=== PATIENT | male | born 1940 | race Caucasian/White ===

== ENCOUNTER → 2017-02-04 | Outpatient (CLI) | payer MEDICARE, OTHER ==
[~2017-02-04] MED LIST: CEFD300C2 PO; CHEMO IV; DIGO125T PO; DIGO250T PO; DOXY100T PO; HYDR-3138 PO; HYDR12.58 PO; INSU100V5 SQ-INSULIN; METO50TA82 PO; METOPROLOL ER PO; PHEN177S47 MM; POTA10CA PO; POTASSIUM CHLORIDE PO; RIVA20TA PO
== END | disposition home or self-care (01) ==
LOC: ROC 08:52
PROVIDERS: ATTEND Radiology Radiation Oncology
DX: Z51.0 Encounter for antineoplastic radiation therapy (principal); C07 Malignant neoplasm of parotid gland
CPT/HCPCS: G0463

== ENCOUNTER → 2017-02-22 | Outpatient (CLI) | payer MEDICARE, OTHER ==
[~2017-02-22] MED LIST changes: +OMNIPAQUE 350 MG/ML, 150 ML BOTTLE ONE
== END | disposition home or self-care (01) ==
LOC: CFH 12:20
PROVIDERS: ATTEND Radiology Radiation Oncology
DX: C07 Malignant neoplasm of parotid gland (principal); D71 Functional disorders of polymorphonuclear neutrophils; K57.30 Diverticulosis of large intestine without perforation or abscess without bleeding
CPT/HCPCS: 70491; 71260; 74177; Q9967

== ENCOUNTER → 2017-12-15 | Outpatient (CLI) | payer MEDICARE, OTHER ==
[~2017-12-15] MED LIST changes: -CEFD300C2 PO; +CEFD300C37 PO; -HYDR-3138 PO; +HYDR-3237 PO; +OMNIPAQUE 350 MG/ML, 100ML BOTTLE ONE; -OMNIPAQUE 350 MG/ML, 150 ML BOTTLE ONE
== END | disposition home or self-care (01) ==
LOC: CFH 12:42
PROVIDERS: ATTEND Internal Medicine Hematology & Oncology
DX: C07 Malignant neoplasm of parotid gland (principal)
CPT/HCPCS: 70491; Q9967